=== PATIENT | male | born 1955 | race Two or more races ===

== ENCOUNTER 2016-07-09 02:09 | Inpatient (IN) | payer MEDICAID ==
[2016-07-09] VITALS (8 sets, daily range): BP systolic 84–129; BP diastolic 54–77
[~2016-07-09] VITALS: Ht 162.6 cm; Wt 77.1 kg
[~2016-07-09 02:09] MED LIST: BACL20TA PO; FUR40T PO; GAB400C PO; GLIP10TA59 PO; HYDR-3682 PO; LACT10SO32 PO; MORP15TA68 PO; Pantoprazole Sodium Sesquihydr PO; RANI150C11 PO; SPIR25TA88 PO
[2016-07-09] MEDS ORDERED: SUCCINYLCHOLINE CHLORIDE 20 MG/ML 10ML VIAL IV ONE (02:12)
[2016-07-09] MEDS ORDERED: ETOMIDATE (2MG/ML) 20ML VIAL IV ONE (02:12)
[2016-07-09] MEDS ORDERED: MIDAZOLAM DRIP 100 mg/100mL NS 100 ML IV ONE ×2 (02:20→18:21)
[2016-07-09] MEDS ORDERED: ATROPINE SULF 0.5 MG/5ML SYR ONE (02:23)
[2016-07-09] MEDS ORDERED: SODIUM CHLORIDE 0.9% 500 ML IVB ONE (02:36)
[2016-07-09 02:51] LABS: Basophils # (auto) 0 uL; Basophils % (auto) 0.4 % (0.0-2.0); DEFINITIVE VIEW TRANSMISSION; Eosinophils # (auto) 0.4 uL; Eosinophils % (auto) 10.5 % (0.0-7.0); Hematocrit 22.2 % (41.0-53.0); Hemoglobin 7.4 g/dL (13.5-17.5); Lymphocytes # (auto) 1.6 uL; Lymphocytes % (auto) 39.8 % (10.0-50.0); Mean Corpuscular Hemoglobin 30.8 pg (28.0-32.0); Mean Corpuscular Hgb Conc. 33.3 g/dL (32.0-36.0); Mean Corpuscular Volume 92.4 fL (80.0-100.0); Mean Platelet Volume 8.5 fL (7.4-10.4); Monocytes # (auto) 0.3 uL; Monocytes % (auto) 7.7 % (0.0-12.0); Neutrophils # (auto) 1.7 uL; Neutrophils % (auto) 41.6 % (37.0-80.0); Platelet Count (auto) 44 10^3/uL (140-450); SUSPECT VIEW TRANSMISSION
[2016-07-09 03:08] LABS: Albumin 2.3 g/dL (3.4-5.0); Anion Gap 10 (5-15); Aspartate Aminotransferase 57 U/L (15-37); BUN/Creatinine Ratio 12.4; Blood Urea Nitrogen 16 mg/dL (7-18); Calcium 7.4 mg/dL (8.5-10.1); Carbon Dioxide 20 mmol/L (21-32); Chloride 107 mmol/L (98-107); GFR African American 72 mL/min; GFR Non-African American 60 mL/min; Glucose 150 mg/dL (74-106); Magnesium 1.5 mg/dL (1.6-2.6); Potassium 4.2 mmol/L (3.5-5.1); Red Cell Distribution Width 20.6 % (11.6-16.0); Sodium 137 mmol/L (136-145)
[2016-07-09 03:13] LABS: Alkaline Phosphatase 89 U/L (45-117); Bilirubin, Total 4.5 mg/dL (0.2-1.0); Total Protein 4.9 g/dL (6.4-8.2)
[2016-07-09 03:14] LABS: Partial Thromboplastin Time 56.3 sec (22.64-33.71)
[2016-07-09 03:18] LABS: INR 2.1 (0.9-1.15); Prothrombin Time 22.7 sec (9.37-12.3)
[2016-07-09 03:47] LABS: Urine RBC None Seen /hpf (0 - 3)
[2016-07-09 04:02] LABS: Urine Bilirubin Negative (Negative); Urine Blood Negative /uL (Negative); Urine Color Yellow (Yellow); Urine Glucose Normal (Normal); Urine Ketone Negative (Negative); Urine Nitrite Negative (Negative); Urine Urobilinogen Normal (Negative); Urine pH 6.5 (5.0-8.0)
[2016-07-09 04:09] LABS: Platelet Estimate Decreased
[2016-07-09 04:10] LABS: Anisocytosis Slight; Burr Cells FEW
[2016-07-09] MEDS ORDERED: DOPamine 1600MCG/ML 250 ML IV ONE ×3 (06:12→18:00)
[2016-07-09] MEDS ORDERED: PIPERACILLIN-TAZOB 3.375GM 100 ML IV ONE (06:15)
[2016-07-09] MEDS ORDERED: VANCOMYCIN 1GM/250ML D5W 250 ML IV ONE (06:15)
[2016-07-09] MEDS: MIDAZOLAM DRIP 100 mg/100mL NS 100 ML IV SCH ×2 (09:44→12:04)
[2016-07-09] MEDS ORDERED: PROPOFOL 100 ML IV SCH (09:44)
[2016-07-09] MEDS ORDERED: VANCOMYCIN PER PHARMACY 0 MG IV SCH (09:45)
[2016-07-09] MEDS ORDERED: DEXTROSE (50%) 50ML SYRG IV PRN (09:45)
[2016-07-09] MEDS ORDERED: SODIUM CHLORIDE 0.9% 1,000 ML IV SCH (09:49)
[2016-07-09] MEDS ORDERED: PANTOPRAZOLE SODIUM 40 MG/10 ML VIAL IV SCH (10:00)
[2016-07-09] MEDS ORDERED: FAMOTIDINE (10MG/ML) 2ML VL IV SCH (10:00)
[2016-07-09] MEDS ORDERED: MORPHINE SULF INJ 2 MG/ML SYRINGE 1ML IV PRN ×2 (10:00)
[2016-07-09] MEDS ORDERED: NITROGLYCERIN 0.4 MG SL TAB SL PRN (10:00)
[2016-07-09] MEDS ORDERED: ONDANSETRON HCL 4 MG/2 ML VIAL IV PRN (10:00)
[2016-07-09] MEDS ORDERED: MAGNESIUM SULFATE 1GM/100ML 100 ML IV ONE (10:00)
[2016-07-09] MEDS ORDERED: VANCOMYCIN 1GM/250ML D5W 250 ML IV SCH (10:06)
[2016-07-09] MEDS: DOPamine 1600MCG/ML 250 ML IV ONE ×2 (10:07→18:10)
[2016-07-09 10:49] LABS: Lactic Acid w/Reflex 3.4 mmol/L (0.4-2.0)
[2016-07-09 10:50] LABS: REFLEX LACTIC ACID YES OR NO NO
[2016-07-09] MEDS ORDERED: ACCU-CHEK COMFORT CURVE STRIP VI SCH (12:00)
[2016-07-09] MEDS ORDERED: PIPERACILLIN-TAZOB 3.375GM 100 ML IV SCH (12:00)
[2016-07-09] MEDS ORDERED: LACTULOSE 20Gm/30ML SOLN PR SCH (12:00)
[2016-07-09] MEDS ORDERED: InsuLIN REG 1unit/0.01ml Soln (100units/ml) SC SCH (12:00)
[2016-07-09 14:23] LABS: Body Fluid Polymorphonuclear 3 %
[2016-07-09] MEDS ORDERED: ZOLP5TAB5 PO (14:53)
[2016-07-09] MEDS ORDERED: TIZA4CAP7 PO (14:53)
[2016-07-09] MEDS ORDERED: ESOM40CA39 PO (14:53)
[2016-07-09] MEDS ORDERED: THIA100T30 PO (14:53)
[2016-07-09] MEDS ORDERED: TAMS0.4C36 PO (14:57)
[2016-07-09] MEDS ORDERED: FURO40TA4 PO (14:57)
[2016-07-09] MEDS ORDERED: MIDO10TA PO (14:57)
[2016-07-09] MEDS ORDERED: OCTR200I IJ (14:57)
[2016-07-09] MEDS ORDERED: GABA800T97 PO (14:57)
[2016-07-09] MEDS ORDERED: ZOLP-158 PO (15:00)
[2016-07-09] MEDS ORDERED: LACT20PA4 PO (15:00)
[2016-07-09] MEDS ORDERED: HYDR-531 PO (15:00)
[2016-07-09] MEDS ORDERED: LIRA18IN2 SUBCUT (15:00)
== END 2016-07-09 18:26 | disposition short-term general hospital (02) | DRG 720 ==
LOC: EDBD 02:09 → ER 02:09 → ICU CENTRL 02:10 → UNDOADMIN 02:10 → OVERFLOW 02:10 → UNDODISIN 12:20 → OVERFLOW 18:23
PROVIDERS: ADMIT Internal Medicine; ATTEND Internal Medicine
PROC: 5A1935Z Respiratory Ventilation, Less than 24 Consecutive Hours (ICD-10-PCS; principal; 2016-07-09)
PROC: 0BH17EZ Insertion of Endotracheal Airway into Trachea, Via Natural or Artificial Opening (ICD-10-PCS; 2016-07-09)
PROC: 0W9G3ZZ Drainage of Peritoneal Cavity, Percutaneous Approach (ICD-10-PCS; 2016-07-09)
DX: A41.9 Sepsis, unspecified organism (principal); J69.0 Pneumonitis due to inhalation of food and vomit; G93.41 Metabolic encephalopathy; E43 Unspecified severe protein-calorie malnutrition; D68.9 Coagulation defect, unspecified; R18.8 Other ascites; E13.21 Other specified diabetes mellitus with diabetic nephropathy; I12.9 Hypertensive chronic kidney disease with stage 1 through stage 4 chronic kidney disease, or unspecified chronic kidney disease; E83.41 Hypermagnesemia; E83.51 Hypocalcemia; K72.90 Hepatic failure, unspecified without coma; R65.20 Severe sepsis without septic shock; N18.2 Chronic kidney disease, stage 2 (mild); K74.60 Unspecified cirrhosis of liver; B19.20 Unspecified viral hepatitis C without hepatic coma; Z80.0 Family history of malignant neoplasm of digestive organs; Z86.73 Personal history of transient ischemic attack (TIA), and cerebral infarction without residual deficits; I25.2 Old myocardial infarction; Z79.899 Other long term (current) drug therapy; Z68.29 Body mass index [BMI] 29.0-29.9, adult
CPT/HCPCS: 31500; 36415; 36556; 36600; 51702; 70450; 71010; 71101; 76942; 80053; 80307; 80320; 81001; 82140; 82805; 82962; 83036; 83605; 83735; 83986; 84484; 85025; 85610; 85730; 86850; 86900; 86901; 86920; 87040; 87070; 87086; 87205; 89051; 93005; 94002; 96361; 96365; 96366; 96368; 96375; 99291; C9113; G0378; J0330; J0461; J1815; J2543

== ENCOUNTER 2016-07-24 08:59 | Observation (INO) | payer MEDICAID ==
[~2016-07-24] VITALS: Ht 162.6 cm; Wt 81.6 kg
[~2016-07-24 08:59] MED LIST changes: +ESOM40CA39 PO; +FURO40TA4 PO; -GAB400C PO; +GABA800T97 PO; -HYDR-3682 PO; +HYDR-531 PO; -LACT10SO32 PO; +LACT20PA4 PO; +LIRA18IN2 SUBCUT; +MIDO10TA PO; -MORP15TA68 PO; +OCTR200I IJ; -RANI150C11 PO; +TAMS0.4C36 PO; +THIA100T30 PO; +TIZA4CAP7 PO; +ZOLP-158 PO; +ZOLP5TAB5 PO
[2016-07-24 09:16] VITALS: BP 102/74
[2016-07-24 09:55] LABS: Basophils # (auto) 0 uL; Basophils % (auto) 0.5 % (0.0-2.0); DEFINITIVE VIEW TRANSMISSION; Eosinophils # (auto) 0.1 uL; Hematocrit 29.8 % (41.0-53.0); Hemoglobin 10.2 g/dL (13.5-17.5); Lymphocytes # (auto) 0.3 uL; Lymphocytes % (auto) 8.3 % (10.0-50.0); Mean Corpuscular Hemoglobin 31.3 pg (28.0-32.0); Mean Corpuscular Hgb Conc. 34.4 g/dL (32.0-36.0); Mean Platelet Volume 7.3 fL (7.4-10.4); Monocytes # (auto) 0.6 uL; Monocytes % (auto) 13.7 % (0.0-12.0); Neutrophils # (auto) 3.1 uL; Neutrophils % (auto) 74.5 % (37.0-80.0); Platelet Count (auto) 72 10^3/uL (140-450); Red Cell Distribution Width 21.8 % (11.6-16.0); White Blood Cell 4.2 10^3/uL (4.4-10.8)
[2016-07-24 10:31] LABS: Albumin 3.1 g/dL (3.4-5.0); Alkaline Phosphatase 165 U/L (45-117); Anion Gap 12 (5-15); Aspartate Aminotransferase 61 U/L (15-37); BUN/Creatinine Ratio 17.8; Bilirubin, Total 10.1 mg/dL (0.2-1.0); Blood Urea Nitrogen 27 mg/dL (7-18); Carbon Dioxide 25 mmol/L (21-32); Chloride 97 mmol/L (98-107); GFR African American 60 mL/min; GFR Non-African American 49 mL/min; Glucose 194 mg/dL (74-106); Potassium 3.7 mmol/L (3.5-5.1); Sodium 134 mmol/L (136-145); Total Protein 6.4 g/dL (6.4-8.2)
== END 2016-07-24 10:09 | disposition left against medical advice (07) ==
LOC: EDUNIT# 08:59 → EDBD 08:59 → ER 09:06 → OVERFLOW 09:52 → ER 10:09
PROVIDERS: ADMIT Emergency Medicine; ATTEND Emergency Medicine
DX: R18.8 Other ascites (principal); K74.60 Unspecified cirrhosis of liver; I10 Essential (primary) hypertension; Z86.73 Personal history of transient ischemic attack (TIA), and cerebral infarction without residual deficits; K21.9 Gastro-esophageal reflux disease without esophagitis; E11.9 Type 2 diabetes mellitus without complications; Z79.899 Other long term (current) drug therapy; I25.2 Old myocardial infarction; Z85.9 Personal history of malignant neoplasm, unspecified
CPT/HCPCS: 36415; 71010; 80053; 83735; 84484; 85025; 93005; 99285; G0378